=== PATIENT | female | born 1970 | race Hispanic/Latino ===

== ENCOUNTER 2023-02-28 08:13 | Outpatient (RCR) | payer OTHER | END 2023-03-06 | LOC: PT 08:13 | PROVIDERS: ATTEND Specialist | DX: S93.491A Sprain of other ligament of right ankle, initial encounter (principal); S92.811A Other fracture of right foot, initial encounter for closed fracture ==

== ENCOUNTER 2023-03-29 06:58 | Outpatient (RCR) | payer OTHER | END 2023-04-06 | LOC: PT 06:58 | PROVIDERS: ATTEND Specialist | DX: S93.491A Sprain of other ligament of right ankle, initial encounter (principal); S92.811A Other fracture of right foot, initial encounter for closed fracture ==